=== PATIENT | male | born 1995 | race Caucasian/White ===

== ENCOUNTER 2019-04-02 19:32 | Emergency (ER) | payer OTHER ==
[2019-04-02 19:38] VITALS: BP 138/73; PULSE 87; TEMP 98.3; BMI 35.9
--- NOTE | 2019-04-02 19:48 | PDOC ---
Rapid Medical Evaluation Chief Complaint: Back Pain Time Seen by Provider: 04/02/19 19:35 Medical Evaluation: 04/02/19 19:36 I have performed a brief in-person evaluation of this patient. The patient presents with a chief complaint of: back pain after lifting garbage this afternoon. Last episode resolved with rest. , + right lower back with sciatic radiation. . , no problems with bowels or bladder, Pertinent physical exam findings: ambulatory , I have ordered the following: nothing The patient will proceed to the ED for further evaluation.
[2019-04-02] MEDS ORDERED: KETOROLAC TROMETHAMINE 30 MG/1 ML VIAL IM ONE (21:15)
--- NOTE | 2019-04-02 21:15 | PDOC ---
History of Present Illness - General Chief Complaint: Back Pain Stated Complaint: BACK INJURY Time Seen by Provider: 04/02/19 19:35 History Source: Patient - History of Present Illness Initial Comments: 04/02/19 21:43 23 year old male c/o right lumbar area back pain radiating to right buttocks since this afternoon after lifting a heavy bag. denies numbness and tingling to the lower extremity, incontinence of bowel and urine Past History - Past Medical History Allergies/Adverse Reactions: Allergies Allergy/AdvReac Type Severity Reaction Status Date / Time Penicillins Allergy Verified 04/02/19 19:38 Home Medications: Ambulatory Orders Mirtazapine 15 mg PO DAILY 04/02/19 Asthma: Yes COPD: No - Suicide/Smoking/Psychosocial Hx Smoking History: Never smoked Review of Systems - Review of Systems Able to Perform ROS?: Yes Is the patient limited [place] proficient: No Constitutional: No: Symptoms Reported, See HPI, Chills, Diaphoresis, Fever, Loss of Appetite, Malaise, Night Sweats, Weakness, Weight Stable, Unintentional Wgt. Loss, Unexplained wgt Loss, Other Musculoskeletal: Yes: Back Pain *Physical Exam - Vital Signs Last Vital Signs Temp Pulse Resp BP Pulse Ox 98.3 F 87 18 138/73 97 04/02/19 19:35 04/02/19 19:35 04/02/19 19:35 04/02/19 19:35 04/02/19 19:35 - Physical Exam General Appearance: Yes: Appropriately Dressed Musculoskeletal: positive: Normal Inspection, Other (right lateral lumbar area tenderness worse with movement). negative: CVA Tenderness, Vertebral Tenderness Extremity: positive: Normal Capillary Refill, Normal Inspection, Normal Range of Motion Integumentary: positive: Normal Color, Dry, Warm Progress Note - Progress Note Progress Note: A: lumbar back pain P: Nsaids muscle rerlaxant ortho follow up *DC/Admit/Observation/Transfer Diagnosis at time of Disposition: Back pain with right-sided sciatica - Discharge Dispostion Disposition: HOME - Referrals Referrals: Analy Madrid MD [Primary Care Provider] - Rick Yost DO [Staff Physician] - Call tomorrow - Patient Instructions Printed Discharge Instructions: Low Back Pain Additional Instructions: apply ice/ heat to the area take ibuprofen every 6 hours as needed for pain take flexeril as prescribed., do not drive after taking this medication. it can make you sleepy. follow up with an orthoepdic doctor as soon as possible. - Post Discharge Activity Forms/Work/School Notes: Back to Work
[2019-04-02] MEDS ORDERED: KETOROLAC TROMETHAMINE 30 MG/1 ML VIAL ONE (21:17)
== END 2019-04-02 21:55 | disposition home or self-care (01) ==
LOC: JERFT 19:32
PROC: 3E0233Z Introduction of Anti-inflammatory into Muscle, Percutaneous Approach (ICD-10-PCS; principal; 2019-04-02)
DX: M54.41 Lumbago with sciatica, right side (principal); X50.0XXA Overexertion from strenuous movement or load, initial encounter; X50.9XXA Other and unspecified overexertion or strenuous movements or postures, initial encounter; Y93.H9 Activity, other involving exterior property and land maintenance, building and construction; Y92.59 Other trade areas as the place of occurrence of the external cause; Y99.0 Civilian activity done for income or pay
CPT/HCPCS: 99281-25